=== PATIENT | male | born 1965 | race Caucasian/White ===

== ENCOUNTER 2024-11-25 07:23 | Inpatient (IN) ==
--- NOTE | 2024-11-25 07:31 | ED Physician Documentation ---
PD HPI ALTERED MENTAL STATUS Stated complaint Stated Complaint: OD Chief complaint Chief Complaint: General Additional information Additional information: 69-year-old with history of chronic pain, hypercholesterolemia, restless legs, and prior back surgery presents with clonazepam overdose. At some point in the last 10 hours, he took up to 31 mg clonazepam tablets. He does not state why he did this. He denies any other coingestions. He denies trying to harm himself. Upon arrival to the emergency department, he is quite somnolent and not answering every question. It is unclear who called EMS. The patient appears to be visiting his mother here and is from out of town (possibly [place] as per his medicine bottle). Most of history is obtained from EMS. I will obtain further history as he awakens. He arrived with medications. All medication bottles are relatively full except there are 2 empty bottles of 1 mg temazepam. There appears to be 30 tablets in each bottle when full. Medication list includes carbidopa/levodopa, cephalexin, gabapentin, senna, rosuvastatin, clonazepam, fenofibrate, entacapone, duloxetine, amantadine, xyzal, and a bottle labeled "softener." 3 hours into his ER visit, he did become somewhat more awake. He said he accidentally took the clonazepam. He normally puts his carbidopa levodopa in a old pill bottle and swallows them from that pill bottle. He accidentally grabbed the full clonazepam bottle and took all the tablets. By my calculation, it is possible he took anywhere from 20 to 30 1 mg clonazepam tablets. He stated he took them around 4 this morning when he normally takes his carbidopa levodopa. He then unfortunately then became more somnolent gain as he did this morning. I spoke to his , brother, and mother. They do not think this was an intentional overdose. He has no history of depression or suicidal thoughts or attempts. They would be very surprised if he took these medications intentionally. Meds/Allgy Home Medications Ambulatory Orders Medication Instructions Recorded Confirmed levothyroxine 100 mcg tablet 100 mcg PO QDAC 11/25/24 lisinopril 10 mg tablet 10 mg PO DAILY 11/25/24 Allergies Allergies Allergy/AdvReac Type Severity Reaction Status Date / Time levofloxacin (From Levaquin) Allergy Unknown Verified 11/25/24 07:33 pregabalin (From Lyrica) Allergy Unknown Verified 11/25/24 07:33 tramadol Allergy Unknown Verified 11/25/24 07:33 PFS Active Problems All Active Problems (Updated 11/25/24 @ 14:44 by Karson Vickers MD) Acute metabolic encephalopathy (Acute) Accidental benzodiazepine poisoning (Acute) Accidental clonazepam overdose (Acute) Medical History Medical History (Updated 11/25/24 @ 14:44 by Karson Vickers MD) Parkinson disease Diabetes Social History Social History Relationship: Exam Exam Vital Signs: Vital Signs x48h Pulse Resp BP Pulse Ox 11/25/24 15:07 49 L 14 117/68 95 11/25/24 15:00 54 L 16 117/68 97 11/25/24 14:00 52 L 14 103/72 94 11/25/24 13:30 50 L 16 106/64 95 11/25/24 12:30 64 16 107/75 96 11/25/24 12:00 65 12 119/71 92 11/25/24 11:30 52 L 12 101/72 94 11/25/24 11:00 57 L 16 137/83 H 94 11/25/24 10:30 54 L 16 131/76 H 96 11/25/24 10:00 66 16 144/79 H 95 11/25/24 09:30 53 L 16 144/79 H 95 11/25/24 09:00 52 L 16 140/87 H 95 11/25/24 08:30 52 L 16 127/85 94 Somnolent and occasionally answering questions. Does not open his eyes. Moving all extremities although slow. Lungs clear to auscultation bilaterally. S1-S2 audible. Bradycardia and regular rhythm present. Abdomen is soft and nontender. There is no suprapubic fullness or tenderness. He is not diaphoretic. Pupils are 2 mm and reactive to light bilaterally. There is no excessive miosis. Respiratory rate is normal. Patient is not agitated. Results Vitals Vitals: Vital Signs - 24 hr 11/25/24 07:26 11/25/24 07:37 11/25/24 08:10 Temperature 36.0 C L Temperature Source Oral Pulse Rate 57 L 55 L 51 L Respiratory Rate 16 16 16 Blood Pressure 122/79 132/90 H 124/84 O2 Saturation 95 95 93 O2 Source Nasal cannula Nasal cannula Room air If not protocol: Oxygen Flow, liters/minute 2 0 Pain Intensity 0 11/25/24 08:30 11/25/24 09:00 11/25/24 09:30 Temperature Temperature Source Pulse Rate 52 L 52 L 53 L Respiratory Rate 16 16 16 Blood Pressure 127/85 140/87 H 144/79 H O2 Saturation 94 95 95 O2 Source Room air Room air If not protocol: Oxygen Flow, liters/minute Pain Intensity 11/25/24 10:00 11/25/24 10:30 11/25/24 11:00 Temperature Temperature Source Pulse Rate 66 54 L 57 L Respiratory Rate 16 16 16 Blood Pressure 144/79 H 131/76 H 137/83 H O2 Saturation 95 96 94 O2 Source Room air Room air If not protocol: Oxygen Flow, liters/minute Pain Intensity 11/25/24 11:30 11/25/24 12:00 11/25/24 12:30 Temperature Temperature Source Pulse Rate 52 L 65 64 Respiratory Rate 12 12 16 Blood Pressure 101/72 119/71 107/75 O2 Saturation 94 92 96 O2 Source Room air Room air Room air If not protocol: Oxygen Flow, liters/minute Pain Intensity 11/25/24 13:30 11/25/24 14:00 11/25/24 15:00 Temperature Temperature Source Pulse Rate 50 L 52 L 54 L Respiratory Rate 16 14 16 Blood Pressure 106/64 103/72 117/68 O2 Saturation 95 94 97 O2 Source Room air Room air If not protocol: Oxygen Flow, liters/minute Pain Intensity 11/25/24 15:07 Temperature Temperature Source Pulse Rate 49 L Respiratory Rate 14 Blood Pressure 117/68 O2 Saturation 95 O2 Source Room air If not protocol: Oxygen Flow, liters/minute Pain Intensity Oxygen O2 Source Room air EKG (time done) 7:30: EKG releavant findings:: EKG personally interpreted by author of this note. Relevant findings are: Rate: Rate (enter#) (55) and Arash Rhythm: NSR [place]: Normal Intervals: Prolonged [place] QRS: QRS normal Ischemia: Normal ST segments; No ST depression, Hyperacute T waves or T wave inversion Labs Labs: Laboratory Tests 11/25/24 11/25/24 07:29 07:44 WBC 4.8 RBC 4.65 L Hgb 13.7 L Hct 42.3 MCV 91.0 MCH 29.5 MCHC 32.4 RDW 13.2 Plt Count 145 MPV 11.0 Neut # (Auto) 3.1 Lymph # (Auto) 1.0 L [place] # (Auto) 0.4 Eos # (Auto) 0.2 Baso # (Auto) 0.0 Absolute Nucleated RBC 0.00 Nucleated RBC % 0.0 Sodium 138 Potassium 4.4 Chloride 106 Carbon Dioxide 27 Anion Gap 5.0 L BUN 16 Creatinine 1.1 Estimated GFR (MDRD) 67 L Glucose 129 H Calcium 8.5 Total Bilirubin 0.5 AST 12 ALT < 3 L Alkaline Phosphatase 65 Total Protein 6.6 Albumin 3.9 Globulin 2.7 Albumin/Globulin Ratio 1.4 Urine Color YELLOW Urine Clarity CLEAR Urine pH 6.5 Ur Specific [place] 1.015 Urine Protein NEGATIVE Urine Glucose (UA) NEGATIVE Urine Ketones NEGATIVE Urine Occult Blood NEGATIVE Urine Nitrite NEGATIVE Urine Bilirubin NEGATIVE Urine Urobilinogen 0.2 (NORMAL) Ur Leukocyte Esterase NEGATIVE Ur Microscopic Review NOT INDICATED Urine Culture Comments NOT INDICATED Salicylates < 1.5 Urine Opiates Screen NEGATIVE Ur Buprenorphine Scrn NEGATIVE Ur Oxycodone Screen NEGATIVE Urine Methadone Screen NEGATIVE Acetaminophen 0.2 Ur Barbiturates Screen NEGATIVE Ur Tricyclics Screen NEGATIVE Ur Phencyclidine Scrn NEGATIVE Ur Amphetamine Screen NEGATIVE U Methamphetamines Scrn NEGATIVE U Benzodiazepines Scrn NEGATIVE Urine Cocaine Screen NEGATIVE U Cannabinoids Screen NEGATIVE Ur Drug Screen Comment CUTOFF CONC BELOW: Ethyl Alcohol < 10.0 PD Medical Decision Making ED course ED course: This patient presents after unintentional clonazepam overdose. Based on history, it seems he accidentally grabbed the wrong bottle of medication and took up to 30 mg of clonazepam. This does not appear to be a suicide attempt. Patient remained quite somnolent during his ER visit. He did have an episode of more lucidity 3 hours in. However, he then became very sleepy again. Respiratory status remained stable, and he was never dyspneic or hypoxemic. Labs show no significant abnormalities. I attempted to observe the patient in the ER with plans to discharge. However, he continued to remain somnolent after 6 hours of observation. I then admitted him for observation to the hospital. Critical Care Critical Care Provided: Yes Time(min): 35 Comments: Benzodiazepine overdose Time Includes: Direct patient care, Reassess patient, Document care, Coordinate care, Medical consult, Family consult for tx dec and See progress note Data interpretation: Labs, Pulse ox and See progress note Discharge Plan Discharge Patient Disposition: 68 [facility] DC/Xfer Clinical Impression: Accidental clonazepam overdose Prescriptions: No Action levothyroxine 100 mcg tablet 100 mcg PO QDAC lisinopril 10 mg tablet 10 mg PO DAILY Print Language: Russian
[2024-11-25 07:47] LABS: BASOPHILS % (AUTO) 0.6 %; EOSINOPHILS # (AUTO) 0.2 10^3/uL (0.0-0.7); EOSINOPHILS % (AUTO) 4.6 %; HCT - HEMATOCRIT 42.3 % (42.0-52.0); HGB - HEMOGLOBIN 13.7 g/dL (14.0-18.0); LYMPHOCYTES % (AUTO) 21.6 %; MEAN CORPUSCULAR HEMOGLOBIN 29.5 pg (27.0-31.0); MEAN CORPUSCULAR HGB CONC 32.4 g/dL (32.0-36.0); MONOCYTES # (AUTO) 0.4 10^3/uL (0.0-1.0); MONOCYTES % (AUTO) 7.9 %; NEUTROPHILS # (AUTO) 3.1 10^3/uL (1.5-6.6); NEUTROPHILS % (AUTO) 65.1 %; PLT - PLATELET COUNT 145 10^3/uL (130-450); RED BLOOD COUNT 4.65 10^6/uL (4.70-6.10); RED CELL DISTRIBUTION WIDTH 13.2 % (12.0-15.0); WHITE BLOOD COUNT 4.8 x10^3/uL (4.8-10.8)
[2024-11-25 07:56] LABS: BILIRUBIN,URINE NEGATIVE (NEGATIVE); GLUCOSE, URINE (UA) NEGATIVE (NEGATIVE); KETONES,URINE (UA) NEGATIVE (NEGATIVE); LEUKOCYTE ESTERASE, URINE NEGATIVE (NEGATIVE); NITRITE,URINE NEGATIVE (NEGATIVE); OCCULT BLOOD,URINE NEGATIVE (NEGATIVE); PH,URINE 6.5 PH (5.0-7.5); PROTEIN,URINE NEGATIVE (NEGATIVE); UROBILINOGEN,URINE 0.2 (NORMAL) E.U./dL (NORMAL)
[2024-11-25 07:58] LABS: CLARITY,URINE CLEAR (CLEAR)
[2024-11-25 08:02] LABS: ACETAMINOPHEN 0.2 ug/mL; ETOH - ETHANOL < 10.0 mg/dL
[2024-11-25 08:04] LABS: ALBUMIN 3.9 g/dL (3.2-5.5); ALBUMIN/GLOBULIN RATIO 1.4 (1.0-2.2); ALKALINE PHOSPHATASE 65 IU/L (42-121); ALT ALANINE AMINOTRANSFERASE < 3 IU/L (10-60); AST ASPARTATE AMINOTRANSFERASE 12 IU/L (10-42); BILIRUBIN,TOTAL 0.5 mg/dL (0.2-1.0); BUN - BLOOD UREA NITROGEN 16 mg/dL (6-20); CALCIUM 8.5 mg/dL (8.5-10.3); CARBON DIOXIDE - CO2 27 mmol/L (21-32); CHLORIDE 106 mmol/L (101-111); CREATININE 1.1 mg/dL (0.6-1.3); GFR - MDRD 67 (>89); GLUCOSE 129 mg/dL (74-104); POTASSIUM 4.4 mmol/L (3.5-4.5); SODIUM 138 mmol/L (135-145); TOTAL PROTEIN 6.6 g/dL (6.4-8.9)
[2024-11-25 08:05] LABS: AMPHETAMINE SCREEN,URINE NEGATIVE (NEGATIVE); BARBITURATE SCREEN,UR NEGATIVE (NEGATIVE); BENZODIAZEPINES SCREEN, URINE NEGATIVE (NEGATIVE); BUPRENORPHINE SCREEN, URINE NEGATIVE (NEGATIVE); COCAINE SCREEN URINE NEGATIVE (NEGATIVE); METHADONE SCREEN, URINE NEGATIVE (NEGATIVE); METHAMPHETAMINES SCREEN, URINE NEGATIVE (NEGATIVE); OPIATE SCREEN, URINE NEGATIVE (NEGATIVE); OXYCODONE SCREEN, URINE NEGATIVE (NEGATIVE); THC CANNABINOID SCREEN, URINE NEGATIVE (NEGATIVE); TRICYCLIC ANTIDEPRESSANT,URINE NEGATIVE (NEGATIVE)
[2024-11-25 08:05] LABS: SALICYLATE < 1.5 mg/dL
--- NOTE | 2024-11-25 14:40 | HISTORY & PHYSICAL EXAMINATION ---
Chief Complaint Chief Complaint Chief Complaint: Accidental overdose History of Present Illness Admitted From Admitted From:: Home History Obtained From Records Reviewed: EMR History obtained from: Patient's , EMR Exam Limitations: Patient lethargic History of Present Illness HPI Comment/Other: Patient is a 69-year-old male with a history of Parkinson's disease who presents after an accidental overdose. Patient is very lethargic, but arousable to stimuli, i.e. sternal rub. He states that he usually wakes up in the morning, around 430, and takes his medications. He believes he actually took way too many of his temazepam. He states that he was not trying to hurt himself, and that it was an accident. He is falling asleep between sentences, and is very lethargic. I called his , Jessenia, and gather further history. He lives in [place], and is currently visiting his family, his mother. She states that at 4:30 AM, he wakes up and takes the first dose of his Sinemet and temazepam. She states that sometimes he takes a "sip of the bottle". She states that he is very meticulous, and has never accidentally taken too many pills in the past. She also states that he has had no suicidal ideation or depression in the past. She herself struggles with suicidal ideation, and he has helped her through it in the past. She states that most of his Parkinson syndrome have been physical, i.e. muscle rigidity and pain. He does not have many cognitive difficulties yet with the disease. In the ER, patient's blood pressure was 122/79, heart rate was 57, he was saturating 95% on room air, and was afebrile. Poison control was spoken with by the ED, and they did not have any recommendations at this time. His lab work was reviewed, and showed no abnormalities. He has been in sinus bradycardia during the stay. He was admitted for observation due to altered mental status. Meds/Allgy Home Medications Ambulatory Orders Medication Instructions Recorded Confirmed levothyroxine 100 mcg tablet 100 mcg PO QDAC 11/25/24 lisinopril 10 mg tablet 10 mg PO DAILY 11/25/24 Allergies Allergies Allergy/AdvReac Type Severity Reaction Status Date / Time levofloxacin (From Levaquin) Allergy Unknown Verified 11/25/24 07:33 pregabalin (From Lyrica) Allergy Unknown Verified 11/25/24 07:33 tramadol Allergy Unknown Verified 11/25/24 07:33 PFS Active Problems All Active Problems (Updated 11/25/24 @ 14:44 by Karson Vickers MD) Acute metabolic encephalopathy (Acute) Accidental benzodiazepine poisoning (Acute) Accidental clonazepam overdose (Acute) Medical History Medical History (Updated 11/25/24 @ 14:44 by Karson Vickers MD) Parkinson disease Diabetes Social History Social History Relationship: Review of Systems Status of ROS: unobtainable due to medical condition and unobtainable due to mental status Exam Exam Vital Signs: Vital Signs x48h Temp Pulse Resp BP Pulse Ox O2 Flow Rate 11/25/24 14:00 52 L 14 103/72 94 11/25/24 13:30 50 L 16 106/64 95 11/25/24 12:30 64 16 107/75 96 11/25/24 12:00 65 12 119/71 92 11/25/24 11:30 52 L 12 101/72 94 11/25/24 11:00 57 L 16 137/83 H 94 11/25/24 10:30 54 L 16 131/76 H 96 11/25/24 10:00 66 16 144/79 H 95 11/25/24 09:30 53 L 16 144/79 H 95 11/25/24 09:00 52 L 16 140/87 H 95 11/25/24 08:30 52 L 16 127/85 94 11/25/24 08:10 51 L 16 124/84 93 11/25/24 07:37 55 L 16 132/90 H 95 0 11/25/24 07:26 96.8 F L 57 L 16 122/79 95 2 Constitutional normal general appearance, no apparent distress, average body habitus, no limitations and level of alertness abnormal (obtunded) and (lethargic) Patient is protecting his airway, but is very lethargic, and falling asleep midsentence. Awakens only to sternal rub. HENMT normocephalic, head/scalp atraumatic and hearing grossly normal bilaterally Eyes PERRL, EOMs intact bilaterally and conjunctivae normal Pupils are minimally dilated, but responsive to light. Neck/C-Spine visual inspection normal, trachea midline and cervical spine nontender Chest inspection of chest normal Respiratory breath sounds equal bilaterally, normal respiratory effort, clear to auscultation bilaterally, no wheezes, no rales and no retractions Cardiovascular heart rate abnormal (bradycardic), regular rhythm noted, no gallop, no rub and no murmur Gastrointestinal abdomen normal to inspection, abdomen soft to palpation, nontender to palpation and normoactive bowel sounds Genitourinary no CVA tenderness and bladder normal to palpation Back/Pelvis spine normal to inspection, no thoracic spine tenderness and no lumbar spine tenderness Extremities normal to inspection, normal to palpation, no tenderness and full ROM Neurology no movement abnormality noted and no focal motor deficit noted After much probing, patient is moving all 4 extremities, following some simple commands. Psychiatry mental status grossly normal and cooperative Skin skin color normal, no rash, no lesions and no wounds Conclusion/Plan Problem List (1) Accidental benzodiazepine poisoning: Plan: Patient may have taken as much as 31 pills of temazepam, which she has been prescribed for his Parkinson's disease, muscle rigidity. Him and his both believe that this was an accidental overdose. Poison control spoken with by the ED, no recommendations at this time. Patient is currently protecting his airway, continue to monitor. Will place bedside sitter at this time, suicide precautions until further and more detailed history can be elicited from the patient. Qualifiers: Encounter type: initial encounter Qualified Code(s): T42.4X1A - Poisoning by benzodiazepines, accidental (unintentional), initial encounter (2) Acute metabolic encephalopathy: Plan: Secondary to above. (3) Parkinson disease: Plan: Hold all oral medications at this time as patient is very obtunded, lethargic and is unable to swallow pills. Qualifiers: Dyskinesia presence: with dyskinesia Fluctuating manifestations: with fluctuating manifestations Qualified Code(s): G20.B2 - Parkinson's disease with dyskinesia, with fluctuations Lab Results Lab results reviewed: Yes 11/25/24 07:29 11/25/24 07:29 Diagnostic Imaging Results Diagnostic Imaging Results: positive Final report reviewed EKG Results EKG Interpreted Independently: Yes Core Measures Anticipated LOS I expect patient to be DC'd or transferred within 96 hours.: Yes Issues Hospital Issues and Management Plan: None anticipated. DVT/VTE - Prophylaxis VTE/DVT Prophylaxis med ordered at admit?: Yes
[2024-11-25] MEDS ORDERED: SODIUM CHLORIDE FLUSH 0.9% 10 ML SYRINGE IVP PRN (16:54)
[2024-11-25] MEDS ORDERED: ONDANSETRON 4 MG/2 ML VIAL IVP PRN (16:54)
[2024-11-25] MEDS: SODIUM CHLORIDE FLUSH 0.9% 10 ML SYRINGE IVP SCH (17:32)
[2024-11-25] MEDS ORDERED: ACETAMINOPHEN 325 MG TABLET PO PRN (19:58)
[2024-11-25] MEDS: ACETAMINOPHEN 1,000 MG/100 ML 1,000 MG/100 ML BAG IV PRN (22:12)
[2024-11-26] MEDS: LACTATED RINGERS 1,000 ML IV SCH (00:18)
[2024-11-26] MEDS: ENOXAPARIN 40 MG/0.4 ML SYRINGE SUBQ SCH (10:30)
--- NOTE | 2024-11-26 11:42 | PHARMACY PROGRESS NOTE ---
Best Possible Medication History Admit Date and Time: 11/25/24 1603 Home Medications Medication Instructions Recorded Confirmed Type amantadine HCl 100 mg capsule 100 mg PO BID 11/26/24 0 11/26/24 History carbidopa 25 mg-levodopa 100 mg 3 tab PO QID 11/26/24 11/26/24 History tablet carbidopa ER 50 mg-levodopa 200 mg 2 tab PO QPM 11/26/24 History tablet,extended release cephalexin 500 mg capsule 500 mg PO QID 11/26/2411/26 History clonazepam 1 mg tablet 1 mg PO .COMPLEX 11/26/24 History docusate sodium 100 mg capsule 200 mg PO DAILY PRN con stipation 11/26/24 11/26/24 History (Stool Softener) duloxetine 60 mg capsule,delayed 60 mg PO DAILY 11/26/24 History release entacapone 200 mg tablet 200 mg PO TID 11/26/2411/26 History fenofibrate nanocrystallized 145 145 mg PO DAILY 11/2611/26/24 History mg tablet gabapentin 800 mg tablet 800 mg PO TID 11/26/2411/26 History levocetirizine 5 mg tablet (Xyzal) 5 mg PO QPM 5 11/26/24 History metformin 500 mg tablet,extended 500 mg PO BID 5 11/26/24 History release 24 hr rosuvastatin 10 mg tablet 10 mg PO QPM 11/26/24 History sennosides 8.6 mg tablet (senna) 8.6 mg PO DAILY 11/2611/26/24 History tirzepatide 10 mg/0.5 mL 10 mg subcut .COMPLEX 11/26/24 History subcutaneous pen injector (Mounjaro) Processed by: Pharmacy (Medication Reconciliation completed by Rheumatology SpecialistBrenda. ) Medications reviewed in ED?: No Medication History completed: Yes Patient Interview: Completed Secondary Source(s): Insurance records [facility] Statement: As the person ultimately responsible for medication therapy, providers are able to order a medication from an existing home medication list in [facility] via the "Reconcile Routine" prior to Confirmation of that medication by direct support professional home health. Such practice is discouraged except when the physician, in their clinical judgment, deems that a medical need exists for a medication without regard to previous use.
--- NOTE | 2024-11-26 15:23 | PROVIDER PROGRESS NOTE ---
Subjective Prog Note Date Prog Note Date: 11/26/24 Prog Note Time: 15:22 Subjective Subjective: I explained to the patient and his that our concern was that he had had an overdose that was intentional. He states that he has multiple medication regimens. And to avoid confusion he has 6 bottles. Each bottle has a timed dose. So he may take 6 pills in the morning, 2 pills at 11 AM, 6 pills again at 2 PM. In each of those bottles is labeled with the time and what pills he supposed to be taking. He states that he woke up and was sleepy and confused. He grabbed the bottle that he thought he was supposed to take and took all the pills without really looking at it. It was only later that he realized that he had grabbed his prescription clonazepam bottle and taken that. To make matters worse, the patient labels the top of the pill bottles with the time, but the bottle still have the old prescriptions labels on them. So a bottle of carbidopa will have a mixture of gabapentin, Cymbalta, Keflex but not carbidopa. He and his are very concerned that he get his medication the way he takes it as prescribed by his neurologist. They have a support group back in [facility]. They are by far the youngest couple they are because most of the Parkinson's patients are in their 60s or 70s. He is 59. He is here to visit his mom. His has flown in.At home he has a thick schedule with his medications. But he still independent with his activities of daily living. He does use help with a walker. Advance care planning conversation was held. Please see under separate dictation. Current Medications Current Medications Current Medications: Current Medications Generic Name Dose Route Start Last Admin Trade Name Giovany PRN Reason Stop Dose Admin Atorvastatin Calcium 20 mg 11/26/24 21:00 Atorvastatin 10 Mg Tablet PO QPM BONIFACIO Carbidopa/Levodopa 2 tab 11/26/24 21:00 Carbidopa/Levodopa Er 50 Mg/200 Mg Tablet PO QPM BONIFACIO Carbidopa/Levodopa 3 tab 11/26/24 17:00 Carbidopa/Levodopa 25 Mg/100 Mg Tablet PO QID [facility] Cephalexin 500 mg 11/26/24 14:30 Cephalexin 500 Mg Capsule PO QID [facility] Cetirizine HCl 10 mg 11/26/24 21:00 Cetirizine 10 Mg Tablet PO QPM BONIFACIO Duloxetine HCl 60 mg 11/27/24 09:00 Duloxetine 60 Mg Capsule PO DAILY [facility] Enoxaparin Sodium 40 mg 11/26/24 09:00 11/26/24 10:30 Enoxaparin 40 Mg/0.4 Ml Syringe SUBQ 40 mg DAILY BONIFACIO Administration Fenofibrate 144 mg 11/27/24 09:00 Fenofibrate 48 Mg Tablet PO DAILY [facility] Gabapentin 800 mg 11/26/24 22:00 Gabapentin 400 Mg Capsule PO TID [facility] Acetaminophen 1,000 mg in 100 mls @ 400 mls/hr 11/25/24 20:33 11/26/24 13:40 Acetaminophen IV Infused Q6HR PRN Infusion Moderate Pain (Level 4-6) Lactated Ringer's 1,000 mls @ 125 mls/hr 11/25/24 23:45 11/26/24 08:55 Lr IV 125 mls/hr .Q8H BONIFACIO Administration Ondansetron HCl 4 mg 11/25/24 16:54 Ondansetron 4 Mg/2 Ml Vial IVP Q6HR PRN Nausea / Vomiting Amantadine Hcl 100 1 each 11/26/24 21:00 Mg Capsule PO BID [facility] Entacapone 200 Mg 1 each 11/26/24 15:00 Tablet) PO TID [facility] Sodium Chloride 10 ml 11/25/24 16:54 Sodium Chloride Flush 0.9% 10 Ml Syringe IVP PRN PRN NEEDED PER PROVIDER ORDERS Sodium Chloride 10 ml 11/25/24 17:00 11/26/24 10:30 Sodium Chloride Flush 0.9% 10 Ml Syringe IVP Not Given 0100,0900,1700 [facility] Objective Vital Signs/Intake & Output Reviewed Vital Signs: Yes Vital Signs: Vital Signs x48h Temp Pulse Resp BP Pulse Ox 11/26/24 13:25 36.8 C 63 18 132/84 H 97 11/26/24 08:23 36.7 C 62 20 133/88 H 95 Intake & Output: Intake & Output 11/23/24 11/24/24 11/25/24 11/26/24 23:59 23:59 23:59 23:59 Intake Total 100 / 100 1300 / 1300 Output Total 700 / 700 250 / 250 Balance -600 / -600 1050 / 1050 Weight (kg) 126 kg Objective General Appearance: positive Lethargic (Eyes are half mask. But he still responds to my questions appropriately. Speech is slow, deliberate. Having problems with swallowing. Says that is a chronic issue for him now.) Eyes Bilateral: positive PERRL and EOMI ENT: positive No signs of dehydration Neck: positive No JVD; negative Stiff neck Respiratory: positive No respiratory distress and Breath sounds nml Cardiovascular: positive Regular rate & rhythm Abdomen: positive Non-tender and Nml bowel sounds Skin: positive Color nml and Other (Slightly oily and diaphoretic face) Extremities: positive Non-tender, Full ROM and Nml appearance Neurologic/Psychiatric: positive Oriented x3 and Mood/affect nml; negative Motor nml (Psychomotor slowing, no tremor, but does have cogwheel rigidity. Cannot do [id number].) Lab Results 11/25/24 07:29 11/25/24 07:29 Assessment/Plan Problem List (1) Accidental benzodiazepine poisoning: Impression: Once the patient is no longer lethargic from the clonazepam, I will declare him medically cleared. He will then be evaluated by social work. This is strictly for the mental health evaluation in case he was suicidal but from what he tells me he was not. I anticipate that his body will clear his drug by tomorrow. He still lethargic, sleepy, barely able to keep his eyes open.He is observation status. I will change him to inpatient since he is not medically stable yet. Still below his functional capacity physically as well as mentally. Qualifiers: Encounter type: initial encounter Qualified Code(s): T42.4X1A - Poisoning by benzodiazepines, accidental (unintentional), initial encounter (2) Parkinson disease: Impression: Advance care planning conversation held with . Please see different dictation. His medications have been resumed. I have asked the nurse to make sure that they have discussed the timing with pharmacy to make it so that he gets medications the way he wants to. Qualifiers: Dyskinesia presence: with dyskinesia Fluctuating manifestations: with fluctuating manifestations Qualified Code(s): G20.B2 - Parkinson's disease with dyskinesia, with fluctuations (3) Acute metabolic encephalopathy: Impression: Secondary to problem #1. Slowly improving. states and as does patient, that he is not back to baseline. Speech is still slurred. Still sleepy.
[2024-11-26] MEDS: ENTACAPONE 200 MG PO SCH ×2 (15:39→15:52)
[2024-11-26] MEDS: cephALEXin 500 MG CAPSULE PO SCH (15:51)
[2024-11-26] MEDS: CARBIDOPA/LEVODOPA 25 MG/100 MG TABLET PO SCH (15:51)
--- NOTE | 2024-11-26 16:14 | ADVANCE CARE PLANNING NOTE ---
Advance Care Planning Planning Encounter Date: 11/26/24 Time: 16:13 Purpose: establish code status and care goals Parties in Attendance: , patient, hospitalist Decisional Capacity of the Patient: oriented to person, situation, but not time. still sleepy. states he still makes own decisions Diagnosis for Encounter (1) Parkinson disease: Qualifiers: Dyskinesia presence: with dyskinesia Fluctuating manifestations: with fluctuating manifestations Qualified Code(s): G20.B2 - Parkinson's disease with dyskinesia, with fluctuations Summary: Please see below Encounter Subjective/Patient's Story: The patient has had Parkinson's for a few years and is followed carefully by his primary care provider and neurologist in [facility]. They have a good support group. They feel like they have excellent care. In spite of this his disease has progressed. He is a little bit more forgetful, has a little bit more problems with swallowing but he is still independent with regards to self- care. Still manages his own medications. He states that he has multiple medication regimens. And to avoid confusion he has 6 bottles. Each bottle has a timed dose. So he may take 6 pills in the morning, 2 pills at 11 AM, 6 pills again at 2 PM. In each of those bottles is labeled with the time and what pills he supposed to be taking. He states that he woke up and was sleepy and confused. He grabbed the bottle that he thought he was supposed to take and took all the pills without really looking at it. It was only later that he realized that he had grabbed his prescription clonazepam bottle and taken that. To make matters worse, the patient labels the top of the pill bottles with the time, but the bottle still have the old prescriptions labels on them. So a bottle of carbidopa will have a mixture of gabapentin, Cymbalta, Keflex but not carbidopa. states that she is a DURABLE POWER OF SERVICE OBSERVER. They have never discussed CODE STATUS and after I discussed resuscitation with him he states he wants to be a full code. I did describe the statistics of resuscitation and then that is good as the general public believes. And if you do have ROSC, it is not back to baseline status and he may be even more disabled. He still wishes to be full code. Even though they are part of a support group for Parkinson's disease, they are the youngest by far. They have never really discussed what the future will bring. They do plan on remodeling their house to be single level and handicapped accessible and she plans on retiring next year to take care of him. But they have never discussed such issues as feeding tubes when he can no longer swallow, or how long treatment would continue if he continues to have aspiration pneumonia or infection, or what they would do if he is 24/7 for caregiving. Objective/Medical Story: Patient is a 69-year-old male with a history of Parkinson's disease who presents after an accidental overdose. Patient is very lethargic, but arousable to stimuli, i.e. sternal rub. He states that he usually wakes up in the morning, around 430, and takes his medications. He believes he actually took way too many of his temazepam. He states that he was not trying to hurt himself, and that it was an accident. He is falling asleep between sentences, and is very lethargic. He lives in [place], and is currently visiting his family, his mother. She states that at 4:30 AM, he wakes up and takes the first dose of his Sinemet and temazepam. She states that sometimes he takes a "sip of the bottle". She states that he is very meticulous, and has never accidentally taken too many pills in the past. She also states that he has had no suicidal ideation or depression in the past. She herself struggles with suicidal ideation, and he has helped her through it in the past. She states that most of his Parkinson syndrome have been physical, i.e. muscle rigidity and pain. He does not have many cognitive difficulties yet with the disease but they are minimally present. In the ER, patient's blood pressure was 122/79, heart rate was 57, he was saturating 95% on room air, and was afebrile. Poison control was spoken with by the ED, and they did not have any recommendations at this time. His lab work was reviewed, and showed no abnormalities. He has been in sinus bradycardia during the stay. He was admitted for observation due to altered mental status. Overnight he has been monitored and has had no arrhythmias or desaturations. He is still lethargic and sleepy. Eyes are open and he has having eye contact and answering questions. But psychomotor slowing. I ask if this is his baseline because of his Parkinson's disease and he states that this is not his baseline. He is usually much more alert and much more interactive. These are still the residuals of his clonazepam. Goals of Care: He has not thought much about the future. While they have taken care of legal matters with regards to DURABLE POWER OF SERVICE OBSERVER, and advanced directives, and remodeling the house for handicap accessibility, they have not really discussed what the deterioration of Parkinson's will bring to him. However they handled in a practical matter with regards to feedings, hospital admissions, and increased caregiver burden for his . Plan: Full CODE STATUS is noted in the chart. Anticipate discharge tomorrow once the full effects of the clonazepam ODT have resolved. I will also have social work see him to make sure there is no suicidal ideation. and he will sit down and have beginning conversations with regards to the future. Code Status: Attempt Resuscitation Time spent on advance care plannin minutes
[2024-11-26] MEDS: ATORVASTATIN 10 MG TABLET PO SCH (21:35)
[2024-11-26] MEDS: CARBIDOPA/LEVODOPA ER 50 MG/200 MG TABLET PO SCH (21:36)
[2024-11-26] MEDS: CETIRIZINE 10 MG TABLET PO SCH (21:36)
[2024-11-26] MEDS: GABAPENTIN 400 MG CAPSULE PO SCH (21:37)
[2024-11-27] MEDS: FENOFIBRATE 48 MG TABLET PO SCH (09:10)
[2024-11-27] MEDS: DULoxetine 60 MG CAPSULE PO SCH (09:11)
[2024-11-27] MEDS ORDERED: ACETAMINOPHEN 500 MG TABLET PO PRN (09:27)
--- NOTE | 2024-11-27 10:09 | Discharge Summary ---
Discharge Summary Admit Date: 11/25/24 Discharge Date: 11/27/24 Discharging Provider: Inga Ruiz MD Primary Care Provider: Kyara Bullock MD @ [facility] ([place], [place]) Code Status: Attempt Resuscitation DIAGNOSES Discharge Diagnoses with Status of Each Condition: 1. Accidental benzodiazepine poisoning 2. Parkinson's disease 3. Acute metabolic encephalopathy HPI History of Present Illness: Patient is a 69-year-old male with a history of Parkinson's disease who presents after an accidental overdose. Patient is very lethargic, but arousable to stimuli, i.e. sternal rub. He states that he usually wakes up in the morning, around 430, and takes his medications. He believes he actually took way too many of his temazepam. He states that he has multiple medication regimens. And to avoid confusion he has 6 bottles. Each bottle has a timed dose. So he may take 6 pills in the morning, 2 pills at 11 AM, 6 pills again at 2 PM. In each of those bottles is labeled with the time and what pills he supposed to be taking. He states that he woke up and was sleepy and confused. He grabbed the bottle that he thought he was supposed to take and took all the pills without really looking at it. It was only later that he realized that he had grabbed his prescription clonazepam bottle and taken that. To make matters worse, the patient labels the top of the pill bottles with the time, but the bottle still have the old prescriptions labels on them. So a bottle of carbidopa will have a mixture of gabapentin, Cymbalta, Keflex but not carbidopa. He states that he was not trying to hurt himself, and that it was an accident. He is falling asleep between sentences, and is very lethargic. I called his , Jessenia, and gather further history. He lives in [place], and is currently visiting his family, his mother. She states that at 4:30 AM, he wakes up and takes the first dose of his Sinemet and temazepam. She states that sometimes he takes a "sip of the bottle". She states that he is very meticulous, and has never accidentally taken too many pills in the past. She also states that he has had no suicidal ideation or depression in the past. She herself struggles with suicidal ideation, and he has helped her through it in the past. She states that most of his Parkinson syndrome have been physical, i.e. muscle rigidity and pain. He does not have many cognitive difficulties yet with the disease. In the ER, patient's blood pressure was 122/79, heart rate was 57, he was saturating 95% on room air, and was afebrile. Poison control was spoken with by the ED, and they did not have any recommendations at this time. His lab work was reviewed, and showed no abnormalities. He has been in sinus bradycardia during the stay. He was admitted for observation due to altered mental status. He states that he has multiple medication regimens. And to avoid confusion he has 6 bottles. Each bottle has a timed dose. So he may take 6 pills in the morning, 2 pills at 11 AM, 6 pills again at 2 PM. In each of those bottles is labeled with the time and what pills he supposed to be taking. He states that he woke up and was sleepy and confused. He grabbed the bottle that he thought he was supposed to take and took all the pills without really looking at it. It was only later that he realized that he had grabbed his prescription clonazepam bottle and taken that. To make matters worse, the patient labels the top of the pill bottles with the time, but the bottle still have the old prescriptions labels on them. So a bottle of carbidopa will have a mixture of gabapentin, Cymbalta, Keflex but not carbidopa. HOSPITAL COURSE Hospital Course: To complete his workup, a toxicology screen was done and completely negative. Ethyl alcohol was less than 10.0. After overnight stay the patient was still sleepy. He would awaken to voice or light touch. He would sit up. But in midsentence fall asleep. Having problems swallowing because of the sleepiness. As such the patient was kept a second midnight. On the morning of discharge she was sitting up in a chair, putting his shoes on without any difficulty. Alert. Oriented to person, place, time and situation. Advance care planning discussion was held with the patient. He is currently a full code. But he and his have not sat down and discussed what would it look like for him to be disabled from his Parkinson's disease and I have suggested topics such as tube feedings, intubation, caregiving burden, caregiving cost to be discussed between themselves frankly over the next few months. I have also suggest that it may be time for her to take over his medications if he is developing some cognitive difficulty. Since he took all of his clonazepam he did ask for a refill. At this time I have declined that. He will need to get this controlled prescription from his PCP. He takes the medications because of the severe nightmares he gets. Nightmares are a complication of Parkinson's disease. I suggested a medication such as Elavil. Alpha wave intrusion is suppressed by drug such as Elavil but again I circled back to the fact that accidentally taking medications and accidentally overdosing can be lethal. Elavil can cause V. tach. But I would leave that discussion between he and his primary care provider about what medication to take. He is now discharged in stable condition. Blood pressure is 114/63. Pulse 55. Respirations 18. Temperature 36.2. O2 sat 95% on room air. He is 64 inches tall, 126 kg. Tanned, well-nourished and well-developed white male. Neck is supple. Lungs are clear to auscultation and percussion and there is no increased respiratory effort with speaking to me or sitting up in that chair, or standing up to walk in the room. He does have cogwheel rigidity and very subtle psychomotor slowing but does not have severe bradykinesia. I do not see a resting tremor at this time. Yesterday he was still slurring his speech, falling asleep in midsentence, having difficulty swallowing because of the sedation. All of that has resolved this morning. Abdomen is soft and nontender. Extremities without edema. Greater than 30 minutes spent coordinating discharge. There are no new medications for him to go to. I have asked him to please see his primary care provider in follow-up when he gets to [facility]. I am also dictating a letter for [employer] since he missed his flight yesterday. ALLERGIES Allergies Allergy/AdvReac Type Severity Reaction Status Date / Time levofloxacin (From Levaquin) Allergy Unknown Verified 11/26/24 14:26 pregabalin (From Lyrica) Allergy Unknown Verified 11/26/24 14:26 tramadol Allergy Unknown Verified 11/26/24 14:26 MEDICATIONS Ambulatory Orders Medication Instructions Recorded Confirmed amantadine HCl 100 mg capsule 100 mg PO BID 11/26/24 0 11/26/24 carbidopa 25 mg-levodopa 100 mg 3 tab PO QID 11/26/24 11/26/24 tablet carbidopa ER 50 mg-levodopa 200 mg 2 tab PO QPM 11/26/24 tablet,extended release cephalexin 500 mg capsule 500 mg PO QID 11/26/2411/26 clonazepam 1 mg tablet 1 mg PO .COMPLEX 11/26/24 docusate sodium 100 mg capsule 200 mg PO DAILY PRN con stipation 11/26/24 11/26/24 (Stool Softener) duloxetine 60 mg capsule,delayed 60 mg PO DAILY 11/26/24 release entacapone 200 mg tablet 200 mg PO TID 11/26/2411/26 fenofibrate nanocrystallized 145 145 mg PO DAILY 11/2611/26/24 mg tablet gabapentin 800 mg tablet 800 mg PO TID 11/26/2411/26 levocetirizine 5 mg tablet (Xyzal) 5 mg PO QPM 5 11/26/24 metformin 500 mg tablet,extended 500 mg PO BID 5 11/26/24 release 24 hr rosuvastatin 10 mg tablet 10 mg PO QPM 11/26/24 sennosides 8.6 mg tablet (senna) 8.6 mg PO DAILY 11/2611/26/24 tirzepatide 10 mg/0.5 mL 10 mg subcut .COMPLEX 11/26/24 subcutaneous pen injector (Gianni) PHYSICAL EXAM AT DISCHARGE Vital Signs: Vital Signs x48h Temp Pulse Resp BP Pulse Ox 11/27/24 09:00 36.2 C L 55 L 18 114/63 95 11/27/24 04:22 36.6 C 51 L 20 116/69 96 LABS 11/25/24 07:29 11/25/24 07:29 Discharge Plan Discharge Patient Disposition: 01 Home, Self Care Condition: Stable Medically Cleared Date:: 11/27/24 Prescriptions: Continued fenofibrate nanocrystallized 145 mg tablet 145 mg PO DAILY Patient Comments: TAKE 1 TABLET BY MOUTH EVERY DAY rosuvastatin 10 mg tablet 10 mg PO QPM amantadine HCl 100 mg capsule 100 mg PO BID Patient Comments: TAKE 1 CAPSULE BY MOUTH TWICE DAILY entacapone 200 mg tablet 200 mg PO TID Rx Instructions: administer at the same time as l-dopa/carbidopa dose clonazepam 1 mg tablet 1 mg PO .COMPLEX Patient Comments: TAKE 1 TABLET BY MOUTH EVERY NIGHT 30 MINUTES BEFORE BEDTIME Rx Instructions: 1 mg orally 30 minutes before bedtime; cephalexin 500 mg capsule 500 mg PO QID carbidopa-levodopa 50-200 mg tablet extended release 2 tab PO QPM Patient Comments: TAKE 2 TABLETS BY MOUTH EVERY NIGHT AT BEDTIME SUPPLY duloxetine 60 mg capsule,delayed release(DR/EC) 60 mg PO DAILY Patient Comments: TAKE 1 CAPSULE BY MOUTH EVERY DAY metformin 500 mg tablet extended release 24 hr 500 mg PO BID Patient Comments: TAKE 1 TABLET BY MOUTH TWICE DAILY gabapentin 800 mg tablet 800 mg PO TID Patient Comments: TAKE 1 TABLET BY MOUTH THREE TIMES DAILY carbidopa-levodopa 25-100 mg tablet 3 tab PO QID Patient Comments: TAKE 3 TABLETS BY MOUTH FOUR TIMES DAILY Mounjaro 10 mg/0.5 mL pen injector 10 mg SUBCUT .COMPLEX Patient Comments: INJECT 10 MG UNDER THE SKIN ONCE WEEKLY Rx Instructions: 10 mg subcutaneously weekly sennosides [senna] 8.6 mg tablet 8.6 mg PO DAILY docusate sodium [Stool Softener] 100 mg capsule 200 mg PO DAILY PRN (Reason: constipation) levocetirizine [Xyzal] 5 mg tablet 5 mg PO QPM Activity Restrictions: Activity as Tolerated Diet: Regular Health Concerns: You are visiting from [place] and have a regimen about how you take your pills. Your medications are in prescription bottles with the label on the bottle. But the labels are not accurate. You will put medication in the label bottle according to what time you are going to take the medication. 1 bottle may have 2 pills. Another bottle may have 4 pills. You woke up at 4:30 in the morning to take your medications and grabbed a bottle. You grabbed the incorrect bottle and took a bottle of clonazepam. We always worry about suicidal ideation or suicide attempts when patients accidentally take an overdose. You have reassured us over and over again that this was an accident. You have no desire to take your life. We kept you 2 midnights and eventually you were awake enough to be safely discharged to home. In the emergency room you were falling asleep in midsentence. The next day you were still falling asleep, really not swallowing well. This morning you were awake, alert, sitting up in a chair, getting dressed and tying your shoelaces. You feel back to normal. Please discuss a new medication or refill of your medication. You take the clonazepam because you have nightmares. Nightmares are a common symptom of Parkinson's. I suggest a drug such as Elavil which is an alpha wave suppressor and might help with nightmares. But discussed this with your primary care provider. Instructions for discharge: 1. Please see your PCP in the next 2 to 3 weeks 2. I have dictated a letter for [employer] explaining to them why you missed your flight and hopefully you can get your flight rescheduled without financial penalty. 3. Resume all of your medications. At this time I am not refilling your clonazepam because of the accidental overdose. It is a controlled substance. 4. Advanced care planning conversation was held with you and your . You wish to be a full code. You have not decided about future wishes with regards to tube feedings, repetitive hospitalizations, or caregiving. There is a conversations you and your will have over the next few months. Print Language: British Patient Instructions: Parkinson Disease Common Sx, Parkinson Disease Caregiver, Parkinson Disease Plan Future, Nightmares and Night Terrors
== END 2024-11-27 12:30 | disposition home or self-care (01) | DRG 917 ==
LOC: MS2 07:23 → ED 07:23 → EDUNIT# 16:03 → MS2 16:43
PROVIDERS: ADMIT Internal Medicine; ATTEND Specialist
DX: G92.8 Other toxic encephalopathy; G20.B2 Parkinson's disease with dyskinesia, with fluctuations; Z79.85 Long-term (current) use of injectable non-insulin antidiabetic drugs; E11.9 Type 2 diabetes mellitus without complications; Z79.84 Long term (current) use of oral hypoglycemic drugs; R40.0 Somnolence; R00.1 Bradycardia, unspecified; T42.4X1A Poisoning by benzodiazepines, accidental (unintentional), initial encounter